=== PATIENT | male | born 1970 | race American Indian/Alaskan Native ===

== ENCOUNTER 2020-07-27 10:11 | Emergency (ER) | payer SELFPAY ==
[2020-07-27] MEDS ORDERED: ASPIRIN 325 MG TAB PO ONE (10:28)
--- NOTE | 2020-07-27 10:32 | Emergency Department Report ---
ED Chest Pain HPI - General Chief Complaint: Chest Pain Stated Complaint: CHEST PAIN Time Seen by Provider: 07/27/20 10:20 Source: EMS Mode of arrival: Stretcher Limitations: Altered Mental Status - History of Present Illness Initial Comments: Patient is a 50-year-old F Vietnamese male with a past medical history of hypertension smoking who is presenting with chest discomfort. Patient is very vague with his symptoms states he has some chest discomfort for the last 2 weeks. He is unable to give a good description of what the chest pain feels like. States is intermittent but has been every day through the 2 weeks. Patient unable to quantify how long the the chest pain lasts when he gets it. But does state it is intermittent. He denies any shortness of breath cough congestion fevers chills nausea vomiting. Patient states he is going through a divorce and that he is under a great deal of stress and is been having some suicidal thoughts as well. Patient does not have a set plan at this time for how he would kill himself. - Related Data Home Medications Medication Instructions Recorded Confirmed Last Taken No Known Home Medications [No 01/09/16 07/27/20 Unknown Reported Home Medications] Allergies Allergy/AdvReac Type Severity Reaction Status Date / Time No Known Allergies Allergy Verified 01/09/16 21:28 Heart Score - HEART Score History: Slightly suspicious EKG: Normal Age: 45-65 Risk factors: 1-2 risk factors Troponin: < normal limit HEART Score: 2 ED Review of Systems ROS: Stated complaint: CHEST PAIN Other details as noted in HPI Comment: All other systems reviewed and negative ED Past Medical Hx - Past Medical History Previous Medical History?: Yes Hx Hypertension: Yes - Social History Smoking Status: Unknown if ever smoked - Medications Home Medications: Home Medications Medication Instructions Recorded Confirmed Last Taken Type No Known Home Medications [No 01/09/16 07/27/20 Unknown History Reported Home Medications] ED Physical Exam - General Limitations: Altered Mental Status General appearance: alert, in no apparent distress - Head Head exam: Present: atraumatic, normocephalic - Eye Eye exam: Present: normal appearance - ENT ENT exam: Present: normal orophraynx, mucous membranes moist - Neck Neck exam: Present: normal inspection - Respiratory Respiratory exam: Present: normal lung sounds bilaterally. Absent: respiratory distress, wheezes, rales, rhonchi - Cardiovascular Cardiovascular Exam: Present: regular rate, normal rhythm, normal heart sounds. Absent: systolic murmur, diastolic murmur, rubs, gallop - GI/Abdominal GI/Abdominal exam: Present: soft, normal bowel sounds. Absent: distended, tenderness, guarding, rebound - Rectal Rectal exam: Present: deferred - Extremities Exam Extremities exam: Present: normal inspection - Back Exam Back exam: Present: normal inspection - Neurological Exam Neurological exam: Present: alert, oriented X3 - Psychiatric Psychiatric exam: Present: normal affect, depressed, flat affect - Skin Skin exam: Present: warm, dry, intact, normal color. Absent: rash ED Course Vital Signs 07/27/20 07/27/20 07/27/20 10:21 10:52 11:01 Temperature 97.3 F L Pulse Rate 74 Respiratory 18 18 Rate Blood Pressure 142/88 Blood Pressure [Left] O2 Sat by Pulse 98 98 98 Oximetry 07/27/20 07/27/20 07/27/20 11:06 11:15 11:31 Temperature Pulse Rate 78 72 73 Respiratory 18 13 13 Rate Blood Pressure 119/70 132/88 Blood Pressure 119/78 [Left] O2 Sat by Pulse 98 97 98 Oximetry 07/27/20 07/27/20 07/27/20 11:45 12:01 12:15 Temperature Pulse Rate 75 84 70 Respiratory 12 15 13 Rate Blood Pressure 142/80 129/85 127/80 Blood Pressure [Left] O2 Sat by Pulse 97 98 97 Oximetry 07/27/20 07/27/20 07/27/20 12:31 12:45 13:01 Temperature Pulse Rate 75 93 H 104 H Respiratory 14 16 14 Rate Blood Pressure 123/77 130/81 133/83 Blood Pressure [Left] O2 Sat by Pulse 96 98 95 Oximetry 07/27/20 07/27/20 07/27/20 13:15 13:31 13:45 Temperature Pulse Rate 96 H 103 H 102 H Respiratory 14 15 15 Rate Blood Pressure 122/69 126/69 125/74 Blood Pressure [Left] O2 Sat by Pulse 98 97 99 Oximetry 07/27/20 07/27/20 07/27/20 14:01 14:16 14:31 Temperature Pulse Rate 100 H 101 H 133 H Respiratory 18 20 26 H Rate Blood Pressure 127/72 125/77 125/77 Blood Pressure [Left] O2 Sat by Pulse 98 98 98 Oximetry 07/27/20 07/27/20 14:45 15:02 Temperature Pulse Rate 103 H 100 H Respiratory 13 18 Rate Blood Pressure 141/73 Blood Pressure 149/81 [Left] O2 Sat by Pulse 97 98 Oximetry - Reevaluation(s) Reevaluation #1: 07/27/20 12:50 Patient's pain is been present for approximately 2 weeks and his troponin is within normal limits. This was ruled out the patient have an acute MN. Patient also has multiple illicit substances in his system but also causes chest discomfort such as the cocaine amphetamines. Patient is intoxicated with alcohol as well at this time. Reevaluation #2: 07/27/20 16:13 Patient admitted to our psych visualizer that he was having thoughts of shooting himself in the head. Patient was placed on 1013 at this time. Patient is medically cleared. ED Medical Decision Making - Lab Data Result diagrams: 07/27/20 10:40 07/27/20 10:40 Lab Results 07/27/20 07/27/20 07/27/20 Range/Units 10:40 10:40 10:40 WBC 7.1 (4.5-11.0) K/mm3 RBC 5.28 H (3.65-5.03) M/mm3 Hgb 16.4 H (11.8-15.2) gm/dl Hct 47.6 H (35.5-45.6) % MCV 90 (84-94) fl MCH 31 (28-32) pg MCHC 34 (32-34) % RDW 14.4 (13.2-15.2) % Plt Count 199 (140-440) K/mm3 Lymph % (Auto) 24.3 (13.4-35.0) % Tyler % (Auto) 5.6 (0.0-7.3) % Eos % (Auto) 0.0 (0.0-4.3) % Baso % (Auto) 0.4 (0.0-1.8) % Lymph # (Auto) 1.7 (1.2-5.4) K/mm3 Tyler # (Auto) 0.4 (0.0-0.8) K/mm3 Eos # (Auto) 0.0 (0.0-0.4) K/mm3 Baso # (Auto) 0.0 (0.0-0.1) K/mm3 Seg Neutrophils % 69.7 (40.0-70.0) % Seg Neutrophils # 4.9 (1.8-7.7) K/mm3 Sodium 137 (137-145) mmol/L Potassium 4.5 (3.6-5.0) mmol/L Chloride 95.5 L (98-107) mmol/L Carbon Dioxide 24 (22-30) mmol/L Anion Gap 22 mmol/L BUN 5 L (9-20) mg/dL Creatinine 0.5 L (0.8-1.3) mg/dL Estimated GFR > 60 ml/min BUN/Creatinine Ratio 10 % Glucose 99 (75-100) mg/dL Calcium 9.3 (8.4-10.2) mg/dL Troponin T < 0.010 (0.00-0.029) ng/mL Salicylates < 0.3 L (2.8-20.0) mg/dL Urine Opiates Screen Urine Methadone Screen Acetaminophen (10.0-30.0) ug/mL Ur Barbiturates Screen Ur Phencyclidine Scrn Ur Amphetamines Screen U Benzodiazepines Scrn Urine Cocaine Screen U Marijuana (THC) Screen Drugs of Abuse Note Plasma/Serum Alcohol (0-0.07) % 07/27/20 07/27/20 07/27/20 Range/Units 10:40 10:40 11:06 WBC (4.5-11.0) K/mm3 RBC (3.65-5.03) M/mm3 Hgb (11.8-15.2) gm/dl Hct (35.5-45.6) % MCV (84-94) fl MCH (28-32) pg MCHC (32-34) % RDW (13.2-15.2) % Plt Count (140-440) K/mm3 Lymph % (Auto) (13.4-35.0) % Tyler % (Auto) (0.0-7.3) % Eos % (Auto) (0.0-4.3) % Baso % (Auto) (0.0-1.8) % Lymph # (Auto) (1.2-5.4) K/mm3 Tyler # (Auto) (0.0-0.8) K/mm3 Eos # (Auto) (0.0-0.4) K/mm3 Baso # (Auto) (0.0-0.1) K/mm3 Seg Neutrophils % (40.0-70.0) % Seg Neutrophils # (1.8-7.7) K/mm3 Sodium (137-145) mmol/L Potassium (3.6-5.0) mmol/L Chloride (98-107) mmol/L Carbon Dioxide (22-30) mmol/L Anion Gap mmol/L BUN (9-20) mg/dL Creatinine (0.8-1.3) mg/dL Estimated GFR ml/min BUN/Creatinine Ratio % Glucose (75-100) mg/dL Calcium (8.4-10.2) mg/dL Troponin T (0.00-0.029) ng/mL Salicylates (2.8-20.0) mg/dL Urine Opiates Screen Negative Urine Methadone Screen Negative Acetaminophen 5.0 L (10.0-30.0) ug/mL Ur Barbiturates Screen Negative Ur Phencyclidine Scrn Negative Ur Amphetamines Screen Positive U Benzodiazepines Scrn Negative Urine Cocaine Screen Positive U Marijuana (THC) Screen Positive Drugs of Abuse Note Disclamer Plasma/Serum Alcohol 0.11 H (0-0.07) % - EKG Data -: EKG Interpreted by Co - EKG Data 07/27/20 12:49 EKG shows normal sinus rhythm rate of 78. Howell is normal intervals are normal. There is J-point notching present in V4 V5 with a concave [address] elevation with no reciprocal changes. This is most consistent with early repolarization. Time of interpretation 1040 - Radiology Data Patient: CHARLY KUMAR MR#: [id number] : 1970 Acct:[id number] Age/Sex: 50 / M ADM Date: 07/27/20 Loc: ED Attending Dr: Ordering Physician: STEPHANIE SCHULER MD Date of Service: 07/27/20 Procedure(s): XR chest 1V ap Accession Number(s): [id number] cc: STEPHANIE SCHULER MD Fluoro Time In Minutes: CHEST 1 VIEW 1058 INDICATION / CLINICAL INFORMATION: chest pain COMPARISON: None available. FINDINGS: SUPPORT DEVICES: None HEART / MEDIASTINUM: No significant abnormality. LUNGS / PLEURA: No significant pulmonary or pleural abnormality. No pneumothorax. ADDITIONAL FINDINGS: No significant additional findings. IMPRESSION: No significant acute abnormality Signer Name: Alan Rojas MD Signed: 07/27/2020 11:38 AM Workstation Name: [id number] Transcribed By: GJ Dictated By: Alan Rojas MD Electronically Authenticated By: Alan Rojas MD Signed Date/Time: 07/27/20 1138 Critical care attestation.: If time is entered above; I have spent that time in minutes in the direct care of this critically ill patient, excluding procedure time. ED Disposition Condition: Stable Referrals: PRIMARY CAREMD [Primary Care Provider] - 3-5 Days
[2020-07-27 11:00] LABS: Basophils % (Auto) 0.4 % (0.0-1.8); Hematocrit 47.6 % (35.5-45.6); Hemoglobin 16.4 gm/dl (11.8-15.2); Lymphocytes # (Auto) 1.7 K/mm3 (1.2-5.4); Lymphocytes % (Auto) 24.3 % (13.4-35.0); Mean Corpuscular HGB Conc 34 % (32-34); Mean Corpuscular Volume 90 fl (84-94); Monocytes # (Auto) 0.4 K/mm3 (0.0-0.8); Monocytes % (Auto) 5.6 % (0.0-7.3); Platelet Count 199 K/mm3 (140-440); Red Blood Count 5.28 M/mm3 (3.65-5.03); Red Cell Distribution Width 14.4 % (13.2-15.2)
[2020-07-27 11:22] LABS: Blood Urea Nitrogen 5 mg/dL (9-20); Calcium 9.3 mg/dL (8.4-10.2); Hemolysis Index 32
[2020-07-27 11:26] LABS: BUN/Creatinine Ratio 10
[2020-07-27 11:29] LABS: Benzodiazepines Screen,Urine Negative; Methadone Screen,Urine Negative; Opiate Screen,Urine Negative
--- NOTE | 2020-07-27 11:42 | XRay Report ---
CHEST 1 VIEW 1058 INDICATION / CLINICAL INFORMATION: chest pain COMPARISON: None available. FINDINGS: SUPPORT DEVICES: None HEART / MEDIASTINUM: No significant abnormality. LUNGS / PLEURA: No significant pulmonary or pleural abnormality. No pneumothorax. ADDITIONAL FINDINGS: No significant additional findings. IMPRESSION: No significant acute abnormality Signer Name: Alan Rojas MD Signed: 07/27/2020 11:38 AM Workstation Name: [id number]
[2020-07-27 11:44] LABS: Amphetamine Screen,Urine Positive; Cannabinoid Screen,Urine Positive; Cocaine Screen,Urine Positive
[2020-07-27 15:38] LABS: Bilirubin,Urine NEG (Negative); Blood,Urine SM (Negative); Color,Urine Yellow (Yellow); Mucus,Urine FEW /HPF; Protein,Urine <15 mg/dL mg/dL (Negative); Urobilinogen,Urine < 2.0 mg/dL (<2.0); WBC,Urine < 1.0 /HPF (0.0-6.0)
[2020-07-27] MEDS ORDERED: ACETAMINOPHEN 325 MG TAB PO ONE (18:45)
[2020-07-27] MEDS ORDERED: ACETAMINOPHEN 325 MG TAB ONE (18:46)
[2020-07-28] MEDS ORDERED: ACETAMINOPHEN 325 MG TAB PO PRN (07:35)
[2020-07-28] MEDS ORDERED: ALUM-MAG HYDROXIDE-SIMETHICONE 200-200-20MG/5ML ORAL LIQD 30 ML PO PRN (07:35)
[2020-07-28] MEDS ORDERED: MAGNESIUM HYDROXIDE (MOM) ORAL LIQD UDC PO PRN (07:35)
[2020-07-28 10:14] VITALS: BP 115/88
== END 2020-07-28 10:35 ==
LOC: ED 10:11
DX: R07.89 Other chest pain (principal); I10 Essential (primary) hypertension; Z79.899 Other long term (current) drug therapy
CPT/HCPCS: 36415; 71045; 80048; 80307; 80320; 81001; 84484; 85025; 93005; G0480